=== PATIENT | male | born 2000 | race Caucasian/White ===

== ENCOUNTER 2019-03-20 00:41 | Emergency (ER) | payer SELFPAY ==
[~2019-03-20] VITALS: Ht 180.3 cm; Wt 8.2 kg
[2019-03-20 00:45] VITALS: BP 115/64
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
[2019-03-20 01:40] VITALS: BP 115/64
--- NOTE | 2019-03-20 01:40 | NUR ---
ER DISCHARGE NOTE: Patient is cleared to be discharged per ERMD, pt is aox4, on room air, with stable vital signs. pt was given dc and prescription instructions, pt was able to verbalize understanding, pt id band removed. pt is able to ambulate with steady gait. pt took all belongings. ERMD placed 7 stitches , pt tolerated well
== END 2019-03-20 01:40 | disposition home or self-care (01) ==
LOC: EMR 01:05
DX: S01.511A Laceration without foreign body of lip, initial encounter (principal); Y04.2XXA Assault by strike against or bumped into by another person, initial encounter; Y93.01 Activity, walking, marching and hiking; Y92.480 Sidewalk as the place of occurrence of the external cause
CPT/HCPCS: 99282

== ENCOUNTER 2019-03-28 23:03 | Emergency (ER) | payer SELFPAY ==
[~2019-03-28] VITALS: Ht 180.3 cm; Wt 95.3 kg
[2019-03-28 23:20] VITALS: BP 125/85
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
--- NOTE | 2019-03-28 23:35 | NUR ---
HAND-OFF: Report given to Nate Dominguez RN.
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
[2019-03-28 23:50] VITALS: BP 122/78
== END 2019-03-28 23:50 | disposition home or self-care (01) ==
LOC: EMR 23:49
DX: Z48.02 Encounter for removal of sutures (principal)
CPT/HCPCS: 99281